=== PATIENT | male | born 1950 | race Caucasian/White ===

== ENCOUNTER → 2016-10-12 | Outpatient (CLI) | payer BC ==
[~2016-10-12] VITALS: Ht 170.2 cm; Wt 72.6 kg
[~2016-10-12] MED LIST: PENICILLIN G BENZATHINE/PROCAINE 900,000/300,000 (BICILLIN CR) 2 ML SYR IM ONE
[2016-10-12 11:06] VITALS: BP 114/86
== END ==
LOC: EUOP 10:37
DX: K04.7 Periapical abscess without sinus (principal)
CPT/HCPCS: 96372; J0558

== ENCOUNTER 2016-10-18 08:45 | Outpatient (RCR) | payer BC ==
[~2016-10-18 08:45] MED LIST changes: +ASPI-586 PO; +CEPH-331 PO; +FNST5T PO; +OMEP20TA PO; -PENICILLIN G BENZATHINE/PROCAINE 900,000/300,000 (BICILLIN CR) 2 ML SYR IM ONE
--- NOTE | 2016-10-18 14:35 | PT/OT/ST INITIAL EVALUATION ---
Department of Health and Human Services Form Approved [facility] Care Financing Administration OMB No. [id number] PLAN OF CARE/ASSESSMENT FOR OUTPATIENT REHABILITATION (Complete for Initial Claims Only) 1. PATIENT'S NAME Thierno Ahuja 2. ACC # [id number] 3. HICN NA 4. PROVIDER NO. [id number] 5. TYPE: PT 6. PRIOR HOSPITALIZATION NA 7. PRIMARY DX BPPV 8. SECONDARY DX NA 9. ONSET DATE 09/19/2016 10. REFERRAL DATE NA 11. SOC. DATE 10/15/2016 12. TIME OF EVAL 8:51 a.m. 12. REFERR[address] PHYSICIAN Dr. Andrea Knutson 13. CHARGES/UNITS NA 14. G CODES NA 15. PRIOR LEVEL OF FUNCTION; PERTINENT HISTORY (Prior therapy results, reason for referral.) S: Prior to therapy, the patient did consent to today's evaluation and treatment. The patient is a 66-year-old male referred to physical therapy by Dr. Andrea Knutson to address BPPV. Personal health rating: The patient does rate his overall and general health as good. Description/mechanism of injury: The patient states, for unknown reasons, he woke up with dizziness. Since this time, the patient's dizziness has persisted and he has most dizziness when he looks to the left side, or when he goes to transition from sitting to standing or lying to sitting. The patient states he has recently has had a tooth infection and has undergone a course of antibiotics which has helped, but does still continue to have significant swelling including through his ear area. Prior level of function: Includes the patient being able to function without any difficulty. Current level of function: Currently the patient is having dizziness with transitions, and when looking to the left side. Therapy History: None significant is reported. Obstacles to delivery of care: No obstacles of delivery of care are observed. Pain level: The patient denies reports of pain. Aggravating factors: Does include quick movements and it has caused one fall. Diagnostic testing: No diagnostic tests have been performed at this time. Past medical history: Does include GERD. Patient's Goal: The patient's goal for physical therapy is to get rid of his dizziness. 16. INITIAL ASSESSMENT/SAFETY PRECAUTIONS/MEDICAL COMPLICATIONS (Level of function at start of care. Be specific, use objective measures, list problems.) O: APPEARANCE AND OBSERVATION: The patient presents as an older male in apparently healthy condition. He does present to physical therapy ambulating without an assistive device with normal past deviation or with more normal path without deviation. SPECIAL TESTS: The patient was taken through [place] exercises and had no reproduction of symptoms. The patient was then taken through the canalith repositioning maneuver with reproduction of symptoms. With the Hallpike the patient did have positive nystagmus and 17 seconds of dizziness. Sitting up following the Hallpike the patient had 15 seconds of dizziness and nystagmus. In position 1 the patient had positive nystagmus of 14 seconds of dizziness. The patient did not have nystagmus or reproduced dizziness in any position. TODAY'S TREATMENT: Today's treatment consisted of initial evaluation followed by canalith repositioning maneuver. The patient was also provided with information on self-treatment of this condition and of the half somersault repositioning. 17. INITIAL POC: (Specify procedures, modalities, short and manager terminal goals) A: The patient presents at physical therapy with diagnosis of BPPV with left-sided involvement with resultant decreased tolerance and position changes and increased dizziness reproduction with canalith maneuver. PROGNOSIS: This patient does have a good prognosis with regular therapy attendance and compliance with post canalith precautions. This patient is expected to benefit from physical therapy services in order to have unlimited transition and elimination of dizziness. OUTCOME ASSESSMENT: Includes canalith which reproduced 46 seconds out of 315 possible seconds of dizziness. SHORT TERM GOALS: 1. Include the patient to be independent and compliant with post-canalith precautions after each visit. 2. The patient with a 50% decrease in dizziness with position changes in 2 weeks to allow rolling and transitioning without limitations. 3. The patient with 0 out of 315 seconds of symptom reproduction with canalith in 4 weeks to return to unlimited function. INFORMED CONSENT: The diagnosis, prognosis, treatment plan, risks and expected outcomes were discussed with the patient and the patient did agree to today's established plan of care. P: Plan to treat the patient 2 times a week for 4 weeks in order to address BPPV. Therapeutic treatments to include canalith repositioning maneuver, neural reeducation, balance and proprioceptive training and patient education in home exercise program to be advanced as warranted. 18. FREQUENCY 2 times week 19. DURATION 4 weeks 20. FUNCTIONAL LEVEL (End of claim period) 21. PHYSICIAN SIGNATURE ? ON FILE OR ENTER HERE: 22. DATE: I certify the need for these services furnished under this plan of care and if for partial hospitalization. 23. CERTIFICATION FROM THROUGH FORM [id number]
== END 2016-11-11 10:18 | disposition home or self-care (01) ==
LOC: PT 08:45
PROVIDERS: ATTEND Specialist
DX: H81.12 Benign paroxysmal vertigo, left ear (principal)